=== PATIENT | male | born 1980 | race Caucasian/White ===

== ENCOUNTER 2018-02-10 08:56 | Emergency (ER) | payer OTHER ==
[2018-02-10 09:00] VITALS: BP 132/81; PULSE 90; RESP 20; TEMP 98.1
[2018-02-10] MEDS ORDERED: PROPARACAINE 0.5% OPHTH DROPS 15 ML BTL LEFT EYE STA (09:11)
[2018-02-10] MEDS ORDERED: DIPH,PERTUS(ACELL)TETVAC-LF 0.5 ML VIAL IM ONE (09:26)
--- NOTE | 2018-02-10 09:46 | ED ---
General Adult HPI - General Chief complaint: Eye Problems Stated complaint: FB IN LEFT EYE Time Seen by Provider: 02/10/18 09:10 Source: patient, RN notes reviewed Mode of arrival: ambulatory Limitations: no limitations - History of Present Illness Initial comments: Patient 38-year-old male presents emergency room today with a chief complaint of foreign body sensation and irritation to the left eye. 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 He does admit that he had safety glasses on. He states he was able to continue to work. He states it did not bother him much until later in the day. Patient states he woke up this morning noticed there was increased redness and photosensitivity and pain to the left eye. Patient does admit to foreign body sensation. Patient states unsure of his tetanus status. Denies any other complaints or symptoms at this time. Patient denies any recent fever, chills, shortness of breath, chest pain, back pain, visual changes, or any other complaints. - Related Data Previous Rx's Medication Instructions Recorded Amoxicillin/Potassium Clav 1 each PO Q12HR #20 tab 02/10/18 [Augmentin 875-125 Tablet] Fluticasone Propionate [Flonase 1 - 2 spray EA NOSTRIL DAILY 5 02/10/18 Allergy Relief] Days ml Tobramycin 0.3% Ophth Soln [Tobrex 1 - 2 drop BOTH EYES Q4H 7 Days ml 02/10/18 0.3% Ophth Soln] Allergies Allergy/AdvReac Type Severity Reaction Status Date / Time No Known Allergies Allergy Verified 02/10/18 09:16 Review of Systems ROS Statement: Those systems with pertinent positive or pertinent negative responses have been documented in the HPI. ROS Other: All systems not noted in ROS Statement are negative. Past Medical History Past Medical History: No Reported History History of Any Multi-Drug Resistant Organisms: None Reported Past Surgical History: No Surgical Hx Reported Past Psychological History: No Psychological Hx Reported Smoking Status: Current every day smoker Past Alcohol Use History: None Reported Past Drug Use History: None Reported General Exam - General Exam Comments Initial Comments: General: The patient is awake and alert, in no distress, and does not appear acutely ill. Eye: Pupils are equal, round and reactive to light. Extra-ocular movements are intact. No nystagmus. Redness to the left conjunctiva. Watery clear discharge. Ears, nose, mouth and throat: There are moist mucous membranes and no oral lesions. Neck: The neck is supple, there is no tenderness or JVD. Musculoskeletal: Normal ROM, no tenderness. Sensation intact. Neurological: A&O x 3. CN II-XII intact, There are no obvious motor or sensory deficits. Coordination appears grossly intact. Speech is normal. Skin: Skin is warm and dry and no rashes or lesions are noted. Psychiatric: Cooperative, appropriate mood & affect, normal judgment. Limitations: no limitations Course Vital Signs 02/10/18 08:58 Temperature 98.1 F Pulse Rate 90 Respiratory 20 Rate Blood Pressure 132/81 O2 Sat by Pulse 99 Oximetry Procedures - Procedures Initial comment: Patient's left eye was anesthetized with proparacaine which to relieve his symptoms. Fluorescein was used to stain the eye revealing a small uptake 9 o' clock position. Slit lamp exam was performed revealing rust ring at the 9 o' clock position of the left eye. Medical Decision Making - Medical Decision Making Patient's a CT of the orbits was reviewed showing no foreign body. There is evidence for sinus disease patient does admit that he's had some increased congestion. There is antibiotic and also Flonase for sinusitis. Patient's rust ring in the left eye was removed with Socrates brush urine emergency room. Rust ring was completely removed. Lids were inverted no foreign body. 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 Patient is tetanus is been updated here in emergency room. Disposition Clinical Impression: Corneal foreign body, Sinusitis Disposition: HOME SELF-CARE Condition: Good Instructions: Eye Foreign Body (ED) Additional Instructions: Please use medication as discussed. Please follow-up with ophthalmology/family doctor in the next 2 days of symptoms have not improved. Please return to emergency room if the symptoms increase or worsen or for any other concerns. Prescriptions: Amoxicillin/Potassium Clav [Augmentin 875-125 Tablet] 1 each PO Q12HR #20 tab Fluticasone Propionate [Flonase Allergy Relief] 1 - 2 spray EA NOSTRIL DAILY 5 Days ml Tobramycin 0.3% Ophth Soln [Tobrex 0.3% Ophth Soln] 1 - 2 drop BOTH EYES Q4H 7 Days ml Is patient prescribed a controlled substance at d/c from ED?: No Referrals: None,Stated [Primary Care Provider] - 1-2 days Alexia Arreguin MD [STAFF PHYSICIAN] - 1-2 days Time of Disposition: 10:53
--- NOTE | 2018-02-10 10:16 | CT ---
EXAMINATION TYPE: CT orbits wo con DATE OF EXAM: 02/10/2018 COMPARISON: None HISTORY: Pt was grinding metal and believes a piece flew into his LT eye. Redness/swelling. CT DLP: 264.7 mGycm Automated exposure control for dose reduction was used. Helical imaging through the orbits FINDINGS: Lucency is present along the surface of the left globe superiorly, correlate clinically for injury. S oft tissue swelling is noted in the preseptal location compatible with patient's history of erythema and edema. No radiopaque foreign body evident within the orbits. Inflammatory changes present in the bilateral maxillary sinuses, sphenoid sinus. IMPRESSION: SINUS DISEASE. NO RADIOPAQUE FOREIGN BODY EVIDENT. CORRELATE FOR INJURY TO THE SURFACE OF THE LEFT LO BE SUPERIORLY
== END 2018-02-10 11:43 | disposition home or self-care (01) ==
LOC: EC 08:56
DX: T15.02XA Foreign body in cornea, left eye, initial encounter (principal); J32.9 Chronic sinusitis, unspecified; F17.200 Nicotine dependence, unspecified, uncomplicated; Z23 Encounter for immunization; Y92.69 Other specified industrial and construction area as the place of occurrence of the external cause; Y99.0 Civilian activity done for income or pay
CPT/HCPCS: 70480; 90471; 90715; 99283